=== PATIENT | male | born 2000 | race Caucasian/White ===

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

== ENCOUNTER 2022-04-23 18:24 | Emergency (ER) | payer MEDICAID ==
[2022-04-23 20:29] VITALS: BP 138/96; O2SAT 97
--- NOTE | 2022-04-23 21:03 | ERPHSYRPT ---
- History of Present Illness Time Seen by Provider: 04/23/22 20:19 Source: patient Exam Limitations: no limitations Patient Subjective Stated Complaint: to ER c/o laceration to left 4th digit. states he was opening a box in the mail that had a machete and he opened the wro ng end. Triage Nursing Assessment: PT arrived with approx 1.5 cm laceration to middle nuckle of 4th digit RIGHT hand bleeding is controled at this time and wound is moderately deep CMPTS + Physician History: 21 years old right-handed dominant male presented in the ER with chief complaint of laceration right fourth digit while he was opening a mailbox which had machete and accidentally got a laceration. There was bleeding initially but stopped with applying pressure. Is able to move finger at proximal and distal interphalangeal joint without any limitation but some pain. No numbness or tingling in the distal finger. Up-to-date with tetanus. No injury anywhere else. Timing/Duration: hour(s) (1), constant, sudden Quality: painful Severity: mild, moderate Location: hands Possible Causes: other Associated Symptoms: other Allergies/Adverse Reactions: No Known Drug Allergies Allergy (Verified 08/04/19 01:41) Hx Tetanus, Diphtheria Vaccination/Date Given: (unknown) Hx Influenza Vaccination/Date Given: No Hx Pneumococcal Vaccination/Date Given: No Travel Risk - International Travel Have you traveled outside of the country in past 3 weeks: No - Coronavirus Screening Are you exhibiting any of the following symptoms?: No Close contact with a COVID-19 positive Pt in past 14-21 Days: No - Vaccine Status Have you recieved a Covid-19 vaccination: No - Review of Systems Constitutional: No Symptoms Ears, Nose, & Throat: No Symptoms Respiratory: No Symptoms Cardiac: No Symptoms Abdominal/Gastrointestinal: No Symptoms Genitourinary Symptoms: No Symptoms Musculoskeletal: Injury Skin: Skin Lesions Neurological: No Symptoms Psychological: No Symptoms Endocrine: No Symptoms Hematologic/Lymphatic: No Symptoms - Past Medical History Pertinent Past Medical History: No Neurological History: No Pertinent History ENT History: No Pertinent History Cardiac History: No Pertinent History Respiratory History: No Pertinent History Endocrine Medical History: No Pertinent History Musculoskeletal History: No Pertinent History GI Medical History: No Pertinent History History: No Pertinent History Psycho-Social History: No Pertinent History Male Reproductive Disorders: No Pertinent History - Past Surgical History Past Surgical History: No - Social History Smoking Status: Never smoker Exposure to second hand smoke: Yes Drug Use: none Patient Lives Alone: No - Nursing Vital Signs Nursing Vital Signs: Initial Vital Signs Temperature 96.6 F 04/23/22 20:18 Pulse Rate 77 04/23/22 20:18 Respiratory Rate 12 04/23/22 20:18 Blood Pressure 138/96 04/23/22 20:18 O2 Sat by Pulse Oximetry 97 04/23/22 20:18 Pain Scale Pain Intensity 5 - Physical Exam General Appearance: no apparent distress, alert Eye Exam: PERRL/EOMI Ears, Nose, Throat Exam: normal ENT inspection Neck Exam: normal inspection Respiratory Exam: normal breath sounds, lungs clear Cardiovascular Exam: regular rate/rhythm, normal heart sounds Extremity Exam: lacerations (2 cm laceration right fourth digit medial aspect just distal to proximal interphalangeal joint with visible partially cut tendon but intact range of motion and distal neurovascular.), tenderness Neurologic Exam: alert, oriented x 3, cooperative Skin Exam: normal color SpO2 Interpretation: normal SpO2: 97 O2 Delivery: Room Air Procedures - Laceration/Wound Repair Right Medial Finger Time of Procedure: 21:00 Wound Location: Right Wound Length (cm): 2 Wound's Depth, Shape: into muscle, irregular Wound Explored: clean Irrigated: Yes Hibiclens Prep: Yes Anesthesia: 1% Lidocaine Volume Anesthetic (ccs): 4 Wound Repaired With: sutures Suture Size/Type: 4-0, nylon Number of Sutures: 4 Layer Closure?: No Sterile Dressing Applied?: Yes Splint Applied?: Yes Type of Splint Applied: Aluminum - Progress Progress: improved Progress Note: 04/23/22 21:01 Laceration is repaired. Has no bony tenderness. Do not think needs imaging. Will refer him outpatient hand surgery follow-up. Tylenol ibuprofen as needed. Counseled pt/family regarding: diagnosis, need for follow-up - Departure Departure Disposition: Home Clinical Impression: Finger laceration involving tendon Condition: Stable Critical Care Time: No Referrals: PORSHA ARMAS [Primary Care Provider] - Follow Up with PCP/3 days NADIRA KIRBY MD [NON-STAFF PHY W/O PRIVILEGES] - Follow up/PCP as directed (Call tomorrow for appointment for reevaluation) Instructions: Laceration Repair With Stitches (DC) Additional Instructions: Take Tylenol/ibuprofen as needed. Intermittent ice application. Avoid exertional activities with involved hand. Follow-up with hand surgery for reevaluation. Suture removal and 2 weeks. Return to ER for increasing pain swelling, fever chills, bluish discoloration of fingertips etc.
[2022-04-23 21:41] VITALS: PULSE 72
== END 2022-04-23 21:41 | disposition home or self-care (01) ==
LOC: ED 18:24
DX: S61.214A Laceration without foreign body of right ring finger without damage to nail, initial encounter (principal); W26.0XXA Contact with knife, initial encounter; Z28.310 Unvaccinated for COVID-19
CPT/HCPCS: 12001; 99281

== ENCOUNTER 2024-01-24 20:24 | Emergency (ER) | payer MEDICAID ==
--- NOTE | 2024-01-24 20:26 | ERPHSYRPT ---
- History of Present Illness Time Seen by Provider: 01/24/24 20:26 Source: patient, family Exam Limitations: no limitations Physician History: This is a 23-year-old white male patient Dr. Keller who was brought into the emergency department by the patient's family because of wasp stings. Patient suffered 3 stings to the back of his neck into to the upper back. Patient has no past medical history. He denies shortness of breath. He denies throat tightness. He denies wheezing, stridor or chest pain. Patient has no known drug allergies and he takes no medications chronically. Timing/Duration: today Quality: burning, itchy Severity: mild (Moderate) Location: other (Posterior neck and upper back) Possible Causes: insect sting Associated Symptoms: denies symptoms Allergies/Adverse Reactions: No Known Drug Allergies Allergy (Verified 01/24/24 20:36) Hx Tetanus, Diphtheria Vaccination/Date Given: (unknown) Hx Influenza Vaccination/Date Given: No Hx Pneumococcal Vaccination/Date Given: No Travel Risk - International Travel Have you traveled outside of the country in past 3 weeks: No - Emerging Infectious Disease Are you exhibiting symptoms associated with any current EIDs: No - Review of Systems Constitutional: No Symptoms Eyes: No Symptoms Ears, Nose, & Throat: No Symptoms Respiratory: No Symptoms Cardiac: No Symptoms Abdominal/Gastrointestinal: No Symptoms Genitourinary Symptoms: No Symptoms Musculoskeletal: No Symptoms Skin: Other (Insect stings to the skin of his posterior neck and upper back.) Neurological: No Symptoms Psychological: No Symptoms Endocrine: No Symptoms Hematologic/Lymphatic: No Symptoms Immunological/Allergic: No Symptoms All Other Systems: Reviewed and Negative - Past Medical History Pertinent Past Medical History: No Neurological History: No Pertinent History ENT History: No Pertinent History Cardiac History: No Pertinent History Respiratory History: No Pertinent History Endocrine Medical History: No Pertinent History Musculoskeletal History: No Pertinent History GI Medical History: No Pertinent History History: No Pertinent History Psycho-Social History: No Pertinent History Male Reproductive Disorders: No Pertinent History - Past Surgical History Past Surgical History: No - Social History Smoking Status: Never smoker Exposure to second hand smoke: Yes Drug Use: none Patient Lives Alone: No - Nursing Vital Signs Nursing Vital Signs: Initial Vital Signs Temperature 99.6 F 01/24/24 20:28 Pulse Rate 86 01/24/24 20:28 Respiratory Rate 16 01/24/24 20:28 Blood Pressure 126/83 01/24/24 20:28 O2 Sat by Pulse Oximetry 96 01/24/24 20:28 Pain Scale Pain Intensity 5 - Physical Exam General Appearance: no apparent distress, alert, anxiety, thin Eye Exam: PERRL/EOMI, eyes nml inspection Ears, Nose, Throat Exam: normal ENT inspection, moist mucous membranes Neck Exam: normal inspection, non-tender, supple, full range of motion, other (Skin of his posterior neck shows mild local reaction to the bee sting including redness and swelling.) Respiratory Exam: normal breath sounds, lungs clear, No chest tenderness, No respiratory distress, No wheezing, No stridor Cardiovascular Exam: regular rate/rhythm, normal heart sounds, normal peripheral pulses Gastrointestinal/Abdomen Exam: No tenderness Rectal Exam: not done Back Exam: other (Skin of upper back has 2 sites which showed local reaction to the insect stings.) Extremity Exam: normal inspection, normal range of motion, pelvis stable Neurologic Exam: alert, oriented x 3, cooperative, home visitor home base head start II-XII nml as tested, nml cerebellar function, nml station & gait, sensation nml Skin Exam: other (See above description) Lymphatic Exam: No adenopathy SpO2 Interpretation: normal O2 Delivery: Room Air - Course Nursing assessment & vital signs reviewed: Yes Ordered Tests: Active Orders 24 hr Category Date Time Status ACO SDOH Referral ONCE Cons 01/24/24 20:35 Active Medication Summary Discontinued Medications Generic Name Dose Route Start Last Admin Trade Name Jennifer PRN Reason Stop Dose Admin Diphenhydramine HCl 50 mg 01/24/24 20:40 01/24/24 20:44 Diphenhydramine Hcl 25 Mg Capsule PO 01/24/24 20:41 50 mg STAT ONE Administration Diphenhydramine HCl Confirm 01/24/24 20:44 Diphenhydramine Hcl 25 Mg Capsule Administered 01/24/24 20:45 Dose 50 mg .ROUTE .STK-MED ONE Famotidine 40 mg 01/24/24 20:40 01/24/24 20:45 Famotidine 20 Mg Tablet PO 01/24/24 20:41 40 mg STAT ONE Administration Famotidine Confirm 01/24/24 20:43 Famotidine 20 Mg Tablet Administered 01/24/24 20:44 Dose 40 mg .ROUTE .STK-MED ONE Prednisone 20 mg 01/24/24 20:41 01/24/24 20:45 Prednisone 20 Mg Tablet PO 01/24/24 20:42 20 mg STAT ONE Administration Prednisone Confirm 01/24/24 20:44 Prednisone 20 Mg Tablet Administered 01/24/24 20:45 Dose 20 mg .ROUTE .STK-MED ONE - Progress Progress: unchanged Progress Note: 01/24/24 21:02 Medical decision making and the assignment of low complexity to this patient's medical issue today is based on review of the patient's past medical history, review of the patient's medication list, review of the patient's drug allergy list, history present illness and physical findings on examination. The workup in this patient does not require laboratory radiographic studies. Counseled pt/family regarding: diagnosis, need for follow-up Medical Desision Making - Independent Historian Additional History obtained from: Family - Diagnostic Testing Diagnostic test were ordered, analyzed, and reviewed by me: No - Risk of complications The pt has a mod risk of morbidity or mortality based on: Need for prescription drug management - Departure Departure Disposition: Home Clinical Impression: Wasp sting Condition: Stable Critical Care Time: No Referrals: PORSHA KELLER [Primary Care Provider] - Follow up/PCP as directed Instructions: Insect Bites and Stings (DC) Additional Instructions: Take your medication as prescribed. Use [id number] Benadryl 25 mg orally every 8 hours for 4 days. May add Tylenol for pain control. Ice pack to tender swollen areas 3 times a day for the next 48 hours. Return to the emergency department if your symptoms worsen. Prescriptions: Prednisone 10 mg [Deltasone 10 mg] 10 mg PO TID #12 tablet Famotidine 20 mg [Pepcid 20 MG] 20 mg PO DAILY #10 tablet
[2024-01-24 20:30] VITALS: RESP 16; TEMP 99.6
[2024-01-24] MEDS ORDERED: Pepcid 20 MG ONE (20:43)
[2024-01-24] MEDS: BENADRYL 25 MG CAPSULE PO ONE (20:44)
[2024-01-24] MEDS ORDERED: DELTASONE 20 MG ONE (20:44)
[2024-01-24] MEDS ORDERED: BENADRYL 25 MG CAPSULE ONE (20:44)
[2024-01-24] MEDS: DELTASONE 20 MG PO ONE (20:45)
[2024-01-24] MEDS: Pepcid 20 MG PO ONE (20:45)
[2024-01-24 21:01] VITALS: BP 116/73; PULSE 62; O2SAT 100
== END 2024-01-24 21:04 | disposition home or self-care (01) ==
LOC: ED 20:24
DX: T63.463A Toxic effect of venom of wasps, assault, initial encounter (principal)
CPT/HCPCS: 99282; A9270-GY